=== PATIENT | male | born 1995 | race Caucasian/White ===

== ENCOUNTER 2024-12-19 18:32 | Emergency (ER) | payer MEDICAID ==
[~2024-12-19] VITALS: Ht 172.7 cm; Wt 75.0 kg
[2024-12-19 18:43] VITALS: TEMP 36.8; O2SAT 99
[2024-12-19 19:52] VITALS: BP 128/79; PULSE 96; RESP 18
[2024-12-19] MEDS: KETOROLAC 30MG/ML VIAL IM STA (19:52)
[2024-12-19] MEDS: DIAZEPAM 2 MG TABLET PO ONE (19:52)
[2024-12-19] MEDS ORDERED: DIAZ5TAB MT (20:16)
[2024-12-19 21:16] LABS: CHLORIDE 104 mEq/L (98-107); POTASSIUM 3.5 mEq/L (3.5-5.1); SODIUM 138 mEq/L (136-145)
[2024-12-19 21:17] LABS: CARBON DIOXIDE 20 mEq/L (21-32)
[2024-12-19 21:18] LABS: CALCIUM 10.2 mg/dL (8.7-10.4)
[2024-12-19 21:22] LABS: CREATININE 1.1 mg/dL (0.6-1.3); GLUCOSE 116 mg/dL (70-105); UREA NITROGEN BLOOD 15 mg/dL (9-23)
[2024-12-19 22:06] LABS: BASOPHILS % 0.3 % (0.0-2.0); EOSINOPHILS % 0.8 % (0.0-5.0); HEMATOCRIT. 45.3 % (42.0-52.0); HEMOGLOBIN. 15.2 g/dL (14.0-18.0); LYMPHOCYTES % 15.9 % (20.0-50.0); MEAN CORPUSCULAR HGB CONC 33.5 g/dL (31.0-37.0); MEAN CORPUSCULAR VOLUME 89.5 fL (80.0-94.0); MEAN PLATELET VOLUME 8.5 fl (7.4-10.4); MONOCYTES % 6.3 % (2.0-8.0); NEUTROPHILS % 76.7 % (40.0-76.0); PLATELET 342 x1000/uL (130-400); RED BLOOD CELL COUNT 5.06 mill/uL (4.7-6.1); RED CELL DISTRIBUTION WIDTH 12.6 % (11.6-14.6); WHITE BLOOD COUNT 11.3 x1000/uL (4.5-11.0)
[2024-12-19 22:35] LABS: ERYTHROCYTE SEDIMENTATION RATE 2 mm/hr (0-15)
== END 2024-12-19 20:22 | disposition home or self-care (01) ==
LOC: ER 18:32
DX: M54.50 Low back pain, unspecified (principal); Z79.899 Other long term (current) drug therapy
CPT/HCPCS: 99285; 72131; 80048; 85025; 85651; 36415; 96372; J1885